=== PATIENT | male | born 1955 | race Caucasian/White ===

== ENCOUNTER 2019-03-19 11:56 | Day surgery (SDC) | payer OTHER ==
[2019-03-17 10:02] VITALS: BMI 28.1
[~2019-03-19 11:56] MED LIST: LACTATED RINGERS 1,000 ML IV SCH; LIDOCAINE 1% 20 ML VIAL (10MG/ML) FOR IV START INTRADERMA PRN
[2019-03-19 12:12] VITALS: TEMP 98
[2019-03-19] MEDS ORDERED: PROPOFOL 10 MG/ML 20 ML VIAL IV ONE (12:24)
--- NOTE | 2019-03-19 12:43 | P.OP ---
Date of Procedure: 03/19/19 Preoperative Diagnosis: Rectal mass Postoperative Diagnosis: Rectal polyp and internal and external hemorrhoids Procedure(s) Performed: Colonoscopy with snare polypectomy Anesthesia: SOHAM ANGEL Surgeon: Ahsan Santana Condition: stable Disposition: same day Description of Procedure: Patient is brought to the Endo suite placed in left lateral decub's position underwent sedation per department of anesthesia timeout performed correct patient correct procedure correct site was verified. Rectal exam was performed there was internal and external hemorrhoids noted there was one hemorrhoid on the internal that appeared to be somewhat thrombosed. These were grade 2 hemorrhoids. Colonoscope was then advanced from the rectum to the cecum with ease and slowly withdrawn being sure to visualize all tyson of the colon on the way out. There was a very small rectal polyp at 1 cm this was excised with hot snare polypectomy. Scope was retroflexed in the rectum and hemorrhoids were once again noted grade 2. Patient tolerated the procedure well there are no apparent complications repeat colonoscopy and 3-5 years pending pathology on polyp
[2019-03-19 12:52] VITALS: RESP 16
[2019-03-19 13:09] VITALS: BP 133/85; PULSE 73
== END 2019-03-19 13:40 | disposition home or self-care (01) ==
LOC: ORWHC2ENDO 11:56
PROVIDERS: ATTEND Student in an Organized Health Care Education/Training Program
DX: K62.1 Rectal polyp (principal); K64.4 Residual hemorrhoidal skin tags; K64.1 Second degree hemorrhoids; K21.9 Gastro-esophageal reflux disease without esophagitis; H46.9 Unspecified optic neuritis; Z91.048 Other nonmedicinal substance allergy status; I71.9 Aortic aneurysm of unspecified site, without rupture; Z82.49 Family history of ischemic heart disease and other diseases of the circulatory system; Z83.3 Family history of diabetes mellitus; Z81.8 Family history of other mental and behavioral disorders; Z80.49 Family history of malignant neoplasm of other genital organs; Z80.3 Family history of malignant neoplasm of breast; Z79.82 Long term (current) use of aspirin; Z79.899 Other long term (current) drug therapy
CPT/HCPCS: 88305; 45385; J2704

== ENCOUNTER → 2020-06-10 | Outpatient (CLI) | payer OTHER ==
[2020-06-10 11:35] LABS: Basophils % (A) 1 %; Eosinophils # (A) 0.2 k/uL (0-0.7); Eosinophils % (A) 4 %; HCT 49.3 % (39.0-53.0); HGB 16.1 gm/dL (13.0-17.5); Lymphocytes # (A) 1.7 k/uL (1.0-4.8); Lymphocytes % (A) 34 %; MCH 29.7 pg (25.0-35.0); MCHC 32.6 g/dL (31.0-37.0); MCV 91.1 fL (80.0-100.0); Mean Platelet Volume 6.6; Monocytes # (A) 0.3 k/uL (0-1.0); Monocytes % (A) 7 %; Neutrophils # (A) 2.5 k/uL (1.3-7.7); Neutrophils % (A) 51 %; Platelet Count 237 k/uL (150-450); RBC 5.41 m/uL (4.30-5.90); WBC 4.8 k/uL (3.8-10.6)
[2020-06-10 18:49] LABS: African American GFR (CKD) 82.4 (60.0-200.0); Albumin 4.3 g/dL (3.80-4.90); Albumin/Globulin Ratio 1.87 (1.60-3.17); BUN/Creat Ratio 14.55 Ratio (12.00-20.00); Calcium 9.9 mg/dL (8.7-10.3); Chol/HDL Ratio 3.26; Globulin 2.3 g/dL (1.6-3.3); LDL Cholesterol,Calculated 72.8 mg/dL (0.0-131.0); Non-African American GFR(CKD) 71.1 (60.0-200.0); Total Bilirubin 0.6 mg/dL (0.2-1.2); Total Protein 6.6 g/dL (6.2-8.2); VLDL Calculation 22.2 mg/dL (5.00-40.00)
[2020-06-10 18:58] LABS: Prostate Specific Antigen 2.2 ng/mL (0.0-4.5)
[2020-06-10 20:14] LABS: Microalbumin Creatinine Ratio <30 mg/g Creat (0-30)
== END | disposition home or self-care (01) ==
LOC: LABWHC1 11:01
PROVIDERS: ATTEND Family Medicine
DX: Z00.00 Encounter for general adult medical examination without abnormal findings (principal); I10 Essential (primary) hypertension; Z12.5 Encounter for screening for malignant neoplasm of prostate
CPT/HCPCS: 36415; 80053; 80061; 82043; 82570; 84153; 84443; 85025

== ENCOUNTER → 2022-05-31 | Outpatient (CLI) | payer MEDICARE, OTHER ==
[2022-05-31 08:58] LABS: African American GFR (CKD) >90 (>60 ml/min/1.73 sqM); Blood Urea Nitrogen 17 mg/dL (9-20); Non-African American GFR(CKD) >90 (>60 ml/min/1.73 sqM)
--- NOTE | 2022-05-31 10:13 | CT ---
EXAMINATION TYPE: CT angio chest CT DLP: 536.7 mGycm, Automated exposure control for dose reduction was used. DATE OF EXAM: 05/31/2022 9:40 AM COMPARISON: CTA chest 04/13/2021. CLINICAL INDICATION:Male, 66 years old with history of I71.20 thoracic aorta aneurysm w/o rupture uns p; Thoracic aortic aneurysm w/o rupture, unspecified TECHNIQUE/CONTRAST: CTA scan of the thorax is performed without and with IV Contrast, patient injected with 100 mL of Iso masha 370. MIP and 3-D images are created and reviewed. FINDINGS: Lungs/Pleura: No evidence of focal consolidation, pleural effusion or pneumothorax. No concerning pul monary nodules or masses. Airway: Large airways are patent. Heart: Heart is within normal limits for size.. No pericardial effusion. Vasculature: The unenhanced images do not demonstrate any evidence to suggest intramuscular hematoma. Stable ascending thoracic aortic aneurysm measures 4.7 cm. The descending thoracic aorta measures 2. 8 cm. The aortic root measures 3.7 cm. Anatomic variant with aberrant right subclavian artery coursin g posterior to the esophagus. Moderate atherosclerotic calcification of the aorta and its branches. G reat vessels branching off the aortic arch are widely patent and normal caliber without significant s tenosis. Mild coronary arterial calcifications. Mediastinum: No gross evidence of adenopathy. Musculoskeletal: No acute osseous abnormalities. Degenerative changes of the thoracic spine. No aggre ssive osseous lesion. Soft Tissues: Unremarkable. Lower neck: No significant findings. Upper Abdomen: Small hiatal hernia. Left hepatic cyst measuring 3.8 cm. Redemonstration of 2 peripher ally enhancing hepatic lesions with largest seen in the left hepatic lobe measuring up to 3.5 cm favo red to represent hemangiomas. Peripheral area of enhancement redundancy within the periphery of the r ight hepatic lobe and is unchanged and may relate to transient hepatic attenuation differences versus an additional hemangioma. IMPRESSION: 1. Stable ascending thoracic aortic aneurysm measuring up to 4.7 cm. 2. Stable hepatic peripheral enhancing lesions favored to represent benign hemangiomas. Additional pe ripheral area of enhancement redemonstrated within the right hepatic lobe and may relate to transient hepatic attenuation differences versus an additional hemangioma.
== END | disposition home or self-care (01) ==
LOC: RADCTMAIN 08:12
PROVIDERS: ATTEND Thoracic Surgery (Cardiothoracic Vascular Surgery)
DX: I71.21 Aneurysm of the ascending aorta, without rupture (principal); K76.9 Liver disease, unspecified
CPT/HCPCS: 82565; 84520; 71275; 36415; Q9967

== ENCOUNTER → 2023-05-29 | Outpatient (CLI) | payer MEDICARE ==
[2023-05-29 14:01] LABS: African American GFR (CKD) >90 (>60 ml/min/1.73 sqM); Blood Urea Nitrogen 17 mg/dL (9-20); Non-African American GFR(CKD) 89 (>60 ml/min/1.73 sqM)
--- NOTE | 2023-05-29 20:57 | CT ---
EXAMINATION TYPE: CT angio chest CT DLP: 716 mGycm, Automated exposure control for dose reduction was used. DATE OF EXAM: 05/29/2023 3:09 PM COMPARISON: CT 05/31/2022 CLINICAL INDICATION:Male, 67 years old with history of I71.20 THORACIC AORTIC ANEURYSM, WITHOUT RUPTU RE,; Thoracic aortic aneurysm w/o rupture, had to reinject due to patient moving during injection and moving arms. TECHNIQUE/CONTRAST: CTA scan of the thorax is performed with IV Contrast, patient injected with 180 mL of Isovue 370, MIP images are created and reviewed these are created on a separate workstation.. FINDINGS: Lungs/Pleura: No evidence of focal consolidation, pleural effusion or pneumothorax. Intrafissural lym ph node along the left major fissure. Airway: Large airways are patent. Heart: Heart is within normal limits for size. Minimal coronary artery calcifications. Vasculature: No evidence for intramural hematoma on noncontrast imaging. No evidence of intimal flap to suggest dissection. No aneurysm identified. Scattered atherosclerotic disease. Ascending thoracic aorta ectasia up to 4.8 cm, previously 4.6 cm on 09/30/2015. Anatomic variant origin of the right sub clavian artery that transverse posterior to the esophagus. Mediastinum: No gross evidence of adenopathy. Musculoskeletal: Moderate degenerative disc disease changes are present throughout the thoracolumbar spine. Soft Tissues: Unremarkable. Lower neck: No significant findings. Upper Abdomen: Left renal cyst. Peripheral vascular shunt phenomenon noted in the right hepatic lobe cyst similar back to 2016. IMPRESSION: 1. Ascending thoracic aorta ectasia up to 4.8 cm. Finding is stable dating back to 05/31/2022 and mi ldly increased from 09/30/2015 where it measured 4.6 cm. No evidence for aneurysm. No evidence for dis section. 2. Mild scattered atherosclerotic disease. 3. Anatomic variant origin of the right subclavian artery that transverse posterior to the esophagus .
== END | disposition home or self-care (01) ==
LOC: RADCTMAIN 13:24
PROVIDERS: ATTEND Thoracic Surgery (Cardiothoracic Vascular Surgery)
DX: I71.21 Aneurysm of the ascending aorta, without rupture (principal); I70.0 Atherosclerosis of aorta
CPT/HCPCS: 82565; 84520; 71275; 36415; Q9967

== ENCOUNTER → 2024-05-27 | Outpatient (CLI) | payer MEDICARE ==
[2024-05-27 11:01] LABS: African American GFR (CKD) >90 (>60 ml/min/1.73 sqM); Blood Urea Nitrogen 15 mg/dL (9-20); Non-African American GFR(CKD) 90 (>60 ml/min/1.73 sqM)
--- NOTE | 2024-05-27 11:56 | CT ---
EXAMINATION TYPE: CT angio chest CT DLP: 819.8 mGycm, Automated exposure control for dose reduction was used. DATE OF EXAM: 05/27/2024 11:32 AM COMPARISON: CT chest 05/29/2023, 05/31/2022. CLINICAL INDICATION:Male, 68 years old with history of I71.20 THORACIC AORTIC ANEURYSM, WITHOUT RUPTU RE; thoracic aortic aneurysm TECHNIQUE/CONTRAST: CTA scan of the thorax is performed without and with IV Contrast, patient injected with 85 mL of Isov ue 370. 3D reconstructed images are created on an independent workstation and reviewed.. FINDINGS: Lungs/Pleura: No evidence of focal consolidation, pleural effusion or pneumothorax. No concerning pul monary nodules or masses. Airway: Large airways are patent. Heart: Heart is within normal limits for size.. No pericardial effusion. Vasculature: The unenhanced images do not demonstrate any evidence to suggest intramural hematoma. Ma rginal increase in size of ascending thoracic aortic aneurysm measuring 4.9 cm, previously 4.7 cm on 2021 exam The descending thoracic aorta measures 3.1, previously 2.8 centimeters on 2021 exam . The a ortic root measures 4.0 cm, previously 3.7 centimeters on 2021 exam . No evidence for dissection. Michelle tomic variant with aberrant right subclavian artery coursing posterior to the esophagus. Moderate ath erosclerotic calcification of the aorta and its branches. Great vessels branching off the aortic arch are widely patent and normal caliber without significant stenosis. Mild coronary arterial calcificat ions. Mediastinum: No evidence of adenopathy. Musculoskeletal: No acute osseous abnormalities. DISH and degenerative changes of the thoracic spine. No aggressive osseous lesion. Soft Tissues: Mild bilateral gynecomastia. Lower neck: No significant findings. Upper Abdomen: Small hiatal hernia. Redemonstration of 2 peripherally enhancing hepatic lesions with largest seen in the left hepatic lobe measuring up to 3.5 cm favored to represent hemangiomas. Periph eral area of enhancement redemonstrated within the periphery of the right hepatic lobe and is unchang ed and may relate to transient hepatic attenuation differences versus an additional hemangioma. IMPRESSION: 1. Marginal increase in size of now aortic root and ascending thoracic aorta aneurysms when compared to 2021 exam. The aortic root measures up to 4.0 cm (previously 3.7 cm) and the ascending thoracic ao rta measures up to 4.9 cm (4.7 cm). 2. Stable hepatic peripheral enhancing lesions favored to represent benign hemangiomas. Additional pe ripheral area of enhancement redemonstrated within the right hepatic lobe and may relate to transient hepatic attenuation differences versus an additional hemangioma. [facility], , 05/27/2024 11:54 AM
== END | disposition home or self-care (01) ==
LOC: RADCTMAIN 10:20
PROVIDERS: ATTEND Thoracic Surgery (Cardiothoracic Vascular Surgery)
DX: I71.20 Thoracic aortic aneurysm, without rupture, unspecified (principal); K44.9 Diaphragmatic hernia without obstruction or gangrene; N62 Hypertrophy of breast; I70.0 Atherosclerosis of aorta
CPT/HCPCS: 82565; 84520; 71275; 36415; Q9967